=== PATIENT | male | born 1995 | race African-American/Black ===

== ENCOUNTER 2018-05-12 16:50 | Emergency (ER) | payer MEDICAID, OTHER ==
[~2018-05-12] VITALS: Ht 182.9 cm; Wt 74.8 kg
--- NOTE | 2018-05-12 17:00 | NUR ---
MSE DONE BY DR JOHNSON IN ROOM 03A. PATIENT A & O X4.
--- NOTE | 2018-05-12 17:30 | NUR ---
Pt back from CT, NAD noted.
--- NOTE | 2018-05-12 17:56 | NUR ---
Patient discharged to home in stable conditon. Written and verbal after care instructions given. Patient verbalizes understanding of instructions. Dr Gaitan made patient aware of test result.
[2018-05-12 18:02] VITALS: BP 119/63
== END 2018-05-12 18:04 | disposition home or self-care (01) ==
LOC: ER 16:54
DX: R10.12 Left upper quadrant pain (principal)
CPT/HCPCS: 74176; 99284; A4663